=== PATIENT | male | born 1975 | race Asian ===

== ENCOUNTER 2016-10-26 20:23 | Emergency (ER) | payer OTHER ==
[2016-10-26 21:02] VITALS: BP 127/92
== END 2016-10-26 21:02 | disposition home or self-care (01) ==
LOC: ED 20:23
DX: B00.1 Herpesviral vesicular dermatitis (principal)

== ENCOUNTER 2017-05-05 08:31 | Emergency (ER) | payer OTHER ==
[~2017-05-05] VITALS: Ht 167.6 cm; Wt 77.1 kg
[2017-05-05 08:32] VITALS: Ht 167.6 cm; Wt 77.1 kg
[2017-05-05 09:22] VITALS: BP 129/79
== END 2017-05-05 09:22 | disposition home or self-care (01) ==
LOC: ED 08:31
DX: M62.838 Other muscle spasm (principal); M54.5 Low back pain